=== PATIENT | male | born 1970 | race Caucasian/White ===

== ENCOUNTER 2018-09-28 14:15 | Emergency (ER) | payer OTHER ==
[2018-09-28 14:26] VITALS: BP 131/88; PULSE 100; TEMP 98; BMI 29.2
[2018-09-28] MEDS ORDERED: INDOMETHACIN 50 MG CAPSULE PO ONE (14:34)
[2018-09-28] MEDS ORDERED: COLCHICINE 0.6 MG TABLET (FP) PO ONE ×2 (14:34→15:55)
--- NOTE | 2018-09-28 14:37 | PDOC ---
History of Present Illness - General Chief Complaint: Pain Stated Complaint: PAIN Time Seen by Provider: 09/28/18 14:28 History Source: Patient - History of Present Illness Occurred: reports: yesterday Severity: Yes: moderate Lower Extremity Pain Location: right: foot, ankle Past History - Past Medical History Allergies/Adverse Reactions: Allergies Allergy/AdvReac Type Severity Reaction Status Date / Time No Known Allergies Allergy Verified 09/28/18 14:34 Home Medications: Ambulatory Orders Colchicine 0.6 mg PO BID #14 capsule 09/28/18 Indomethacin 50 mg PO TID #21 capsule 09/28/18 COPD: No Kidney Stones: Yes Other medical history: GOUT - Suicide/Smoking/Psychosocial Hx Smoking History: Never smoked Have you smoked in the past 12 months: Yes Number of Cigarettes Smoked Daily: 0 Hx Alcohol Use: No Drug/Substance Use Hx: No Substance Use Type: None Review of Systems - Review of Systems Constitutional: No: Chills, Fever Musculoskeletal: Yes: Joint Pain, Joint Swelling *Physical Exam - Vital Signs Last Vital Signs Temp Pulse Resp BP Pulse Ox 98.0 F 100 H 18 131/88 100 09/28/18 14:24 09/28/18 14:24 09/28/18 14:24 09/28/18 14:24 09/28/18 14:24 - Physical Exam General Appearance: Yes: Appropriately Dressed. No: Apparent Distress HEENT: positive: Normal Voice Neck: positive: Supple Respiratory/Chest: negative: Respiratory Distress Extremity: positive: Swelling (mild swelling to lateral mal of R ankle w/ diffuse ttp to ankle joint and proximal foot, no erythema or increased warmth) Integumentary: positive: Dry, Warm Neurologic: positive: Fully Oriented, Alert, Normal Mood/Affect Moderate Sedation - Procedure Monitoring Vital Signs: Procedure Monitoring Vital Signs Temperature 98.0 F 09/28/18 14:24 Pulse Rate 100 H 09/28/18 14:24 Respiratory Rate 18 09/28/18 14:24 Blood Pressure 131/88 09/28/18 14:24 O2 Sat by Pulse Oximetry (%) 100 09/28/18 14:24 ED Treatment Course - LABORATORY CBC & Chemistry Diagram: 09/28/18 15:05 09/28/18 15:05 - RADIOLOGY Radiology Studies Ordered: Category Date Time Status ANKLE & FOOT-RIGHT* [RAD] Stat Radiology 09/28/18 14:34 Ordered Medical Decision Making - Medical Decision Making 09/28/18 14:36 48 yo M, h/o renal stones, gout (usually to R great toe), not on any prophylactic meds, gets flares ~8 months, now here w/ pain and swelling to R foot/ankle x 2 days that feels like his gout except that his gout has never affected any joint except his R toe. No f/c. No recent trauma or other obvious inciting factors. No h/o septic joint See exam Possibly gout to R ankle No e/o infection No recent trauma -basic labs including uric acid lvl -XR to assess for effusion -pain control in ED 09/28/18 14:52 09/28/18 16:15 XR with no obvious s/o effusion. Mild leukocytosis of 12 w/ mildly elevated uric acid lvl of 7.9. On reassessment, patient reports significant improvement with pain meds. Will dc w/ pain control. Will hold off on abx as not convinced clinically of an infectious process. Will dc with prescriptions for pain control and encourage PMD follow-up. Reasons to return to ER d/w pt *DC/Admit/Observation/Transfer Diagnosis at time of Disposition: H/O: gout Foot pain Qualifiers: Laterality: right Qualified Code(s): M79.671 - Pain in right foot - Discharge Dispostion Disposition: HOME - Prescriptions Prescriptions: Colchicine 0.6 mg PO BID #14 capsule Indomethacin 50 mg PO TID #21 capsule - Referrals - Patient Instructions Printed Discharge Instructions: Gout Additional Instructions: You were treated for an acute gout flare. There was no evidence of an infection today. Your uric acid was mildly elevated to 7.9 Take medications as directed and if symptoms persist and/or you develop redness , fever or chills, return to the ER immediately, otherwise follow-up with your PMD in a week - Post Discharge Activity
[2018-09-28] MEDS ORDERED: COLCHICINE 0.6 MG TABLET (FP) ONE ×2 (14:41→16:00)
[2018-09-28 15:25] LABS: BASO % 0.4 % (0-2.0); EOS % 0.4 % (0-4.5); HEMATOCRIT 37.5 % (35.4-49); HEMOGLOBIN 12.3 GM/dL (11.7-16.9); LYMPH % 14.3 % (8-40); MCHC 32.7 g/dl (32.0-35.9); MEAN CELL VOLUME 60.9 fl (80-96); MEAN PLT VOLUME 9.2 fl (7.5-11.1); MONO % 10.6 % (3.8-10.2); NEUT % 74.3 % (42.8-82.8); PLATELET COUNT 160 K/MM3 (134-434); RBC 6.16 M/mm3 (4.00-5.60); RDW 17.1 % (11.9-15.9); WHITE BLOOD COUNT 12.5 K/mm3 (4.0-10.0)
[2018-09-28 15:32] LABS: MCH 19.9 pg (25.7-33.7)
[2018-09-28 15:59] LABS: ALBUMIN 4.1 g/dl (3.4-5.0); ALK PHOS 64 U/L (45-117); ANION GAP 5 MMOL/L (8-16); BILIRUBIN,TOTAL 0.7 mg/dL (0.2-1); BLOOD UREA NITROGEN 16 mg/dL (7-18); CALCIUM 9.1 mg/dL (8.5-10.1); CHLORIDE 104 mmol/L (98-107); CO2 29 mmol/L (21-32); CREATININE 1.1 mg/dL (0.55-1.3); GLUCOSE,RANDOM 101 mg/dL (74-106); POTASSIUM 4.3 mmol/L (3.5-5.1); SGOT/AST 15 U/L (15-37); SGPT/ALT 30 U/L (13-61); SODIUM 137 mmol/L (136-145); TOT PROT 7.4 g/dl (6.4-8.2); URIC ACID 7.9 mg/dL (2.6-7.2)
[2018-09-28 23:05] LABS: MACROCYTOSIS 1+
[2018-09-28 23:06] LABS: PLATELET ESTIMATE ADEQUATE
== END 2018-09-28 16:28 | disposition home or self-care (01) ==
LOC: JERFT 14:15
DX: M79.671 Pain in right foot (principal)
CPT/HCPCS: 36415; 73610-TC-RT-FY; 73630-TC-RT-FY; 80053; 84550; 85025; 99281-25

== ENCOUNTER 2019-06-13 11:16 | Emergency (ER) | payer OTHER ==
[2019-06-13 11:32] VITALS: BP 127/82; PULSE 80; TEMP 98; BMI 28.1
--- NOTE | 2019-06-13 12:14 | PDOC ---
History of Present Illness - General Chief Complaint: Back Pain Stated Complaint: LOWER BACK PAIN Time Seen by Provider: 06/13/19 11:58 History Source: Patient Exam Limitations: No Limitations Past History - Past Medical History Allergies/Adverse Reactions: Allergies Allergy/AdvReac Type Severity Reaction Status Date / Time No Known Allergies Allergy Verified 06/13/19 11:32 Home Medications: Ambulatory Orders Colchicine 0.6 mg PO BID #14 capsule 09/28/18 Indomethacin 50 mg PO TID #21 capsule 09/28/18 Methocarbamol [Robaxin -] 1,500 mg PO QID PRN #24 tablet 06/13/19 COPD: No Kidney Stones: Yes Other medical history: GOUT - Psycho Social/Smoking Cessation Hx Smoking History: Never smoked Have you smoked in the past 12 months: Yes Number of Cigarettes Smoked Daily: 0 Hx Alcohol Use: No Drug/Substance Use Hx: No Substance Use Type: None Trauma Specific PMHX - Complaint Specific PMHX Back Injury: No Neck Injury: Yes (known C5-C6 disc injury, diag. in [place] with MRI) *Physical Exam - Vital Signs Last Vital Signs Temp Pulse Resp BP Pulse Ox 98 F 80 18 127/82 98 06/13/19 11:29 06/13/19 11:29 06/13/19 11:29 06/13/19 11:29 06/13/19 11:29 - Physical Exam General Appearance: No: Apparent Distress Respiratory/Chest: positive: Lungs Clear, Normal Breath Sounds. negative: Respiratory Distress Cardiovascular: positive: Regular Rhythm, Regular Rate, S1, S2. negative: Murmur Gastrointestinal/Abdominal: positive: Normal Bowel Sounds, Soft. negative: Tender, Distended, Guarding, Rebound Musculoskeletal: positive: Muscle Spasm (along L lumbar paraspinal muscles). negative: CVA Tenderness, Vertebral Tenderness Neurologic: positive: Alert, Normal Mood/Affect, Motor Strength 5/5, Other ( normal gait) Medical Decision Making - Medical Decision Making 48 y/o M hx of kidney stones, gout presents with L lower back pain x 2 days, worse with movement of body. Denies trauma, heavy lifting, fever, sob, cp, abd pain, n/v, hematuria, dysuria. Back muscle spasm Plan: Motrin, Robaxin Patient insistent that this pain is from kidney stones Explained this is not from kidney stones Will get UA to check for blood 06/13/19 12:12 UA no blood stable for dc 06/13/19 12:55 Discharge - Discharge Information Problems reviewed: Yes Clinical Impression/Diagnosis: Back muscle spasm Condition: Stable Disposition: HOME - Admission No - Additional Discharge Information Prescriptions: Methocarbamol [Robaxin -] 1,500 mg PO QID PRN #24 tablet PRN Reason: Muscle Spasms Prescription Drug Monitoring Program (I-STOP) results: I-STOP not reviewed - Follow up/Referral Referrals: Long Samaniego [Primary Care Provider] - 2 Days - Patient Discharge Instructions Patient Printed Discharge Instructions: DI for Back Spasm Additional Instructions: Thank you for choosing [facility]. It was a pleasure taking care of you. You may take Motrin 600 mg every 6 hours by mouth as needed for mild to moderate pain. Take Motrin with food. Take Robaxin as needed for muscle spasms. This medication can also make you drowsy so please be cautious with driving or performing heavy physical work. Heating pad, warm compresses, epsom salt baths may also help Return to the Emergency Department if your symptoms worsen or persist, you have fever, shortness of breath, chest pain, severe abdominal pain, vomiting, weakness of extremities (arms and/or legs), unable to control bowel or bladder movements or other concerning symptoms. - Post Discharge Activity
[2019-06-13] MEDS ORDERED: IBUPROFEN 400 MG TABLET (FP) PO ONE (12:15)
[2019-06-13] MEDS ORDERED: METHOCARBAMOL 750 MG TABLET PO ONE (12:15)
[2019-06-13] MEDS ORDERED: IBUPROFEN 600 MG TABLET (FP) PO ONE (12:26)
[2019-06-13] MEDS ORDERED: METHOCARBAMOL 500 MG TABLET ONE (12:33)
[2019-06-13 12:41] LABS: URINE APPEARANCE CLEAR; URINE BILIRUBIN NEGATIVE (NEGATIVE); URINE COLOR YELLOW; URINE GLUCOSE (UA) NEGATIVE (NEGATIVE); URINE KETONE TRACE (NEGATIVE); URINE LEUK ESTERASE NEGATIVE (NEGATIVE); URINE NITRITE NEGATIVE (NEGATIVE); URINE PROTEIN NEGATIVE (NEGATIVE); URINE UROBILINOGEN 0.2 mg/dL (0.2-1.0)
== END 2019-06-13 13:02 | disposition home or self-care (01) ==
LOC: JERFT 11:16
DX: M62.830 Muscle spasm of back (principal); M54.6 Pain in thoracic spine; M10.9 Gout, unspecified; Z87.442 Personal history of urinary calculi
CPT/HCPCS: 81003; 99282-25

== ENCOUNTER 2019-07-04 09:30 | Day surgery (SDC) | payer OTHER ==
[2019-07-02 16:01] VITALS: BMI 29.6
[2019-07-04] MEDS ORDERED: PROPOFOL 20 ML ONE ×2 (11:16→12:46)
[2019-07-04] MEDS ORDERED: MIDAZOLAM HCL 2 MG/2 ML SINGLE DOSE VIAL ONE (11:16)
[2019-07-04] MEDS ORDERED: ONDANSETRON 4 MG/2 ML VIAL IVPUSH PRN ×2 (11:57→13:17)
[2019-07-04] MEDS ORDERED: oxyCODONE HCL 5 MG TABLET PO PRN ×2 (11:57)
[2019-07-04] MEDS ORDERED: LACTATED RINGERS SOLUTION 1,000 ML IV SCH ×2 (12:00→13:30)
[2019-07-04] MEDS ORDERED: ceFAZolin SODIUM 1 GM VIAL IVPB ONE (12:30)
[2019-07-04] MEDS ORDERED: GENTAMICIN SO4 80 MG/2 ML VIAL ONE (12:35)
[2019-07-04] MEDS ORDERED: GENTAMICIN SO4 80 MG/2 ML VIAL IVPB ONE (12:40)
[2019-07-04] MEDS ORDERED: IOHEXOL 300 MG/ML INFUS..BTL IV ONE (12:45)
[2019-07-04] MEDS ORDERED: FUROSEMIDE 40 MG/4 ML INJECTABLE VIAL ONE (12:47)
--- NOTE | 2019-07-04 13:12 | OP ---
Operative Note - Note: Operative Date: 07/04/19 Pre-Operative Diagnosis: LDU stone Operation: ureteroscopy/laser litho Post-Operative Diagnosis: Same as Pre-op Surgeon: Grady Atkins Anesthesia: General Specimens Removed: stones Drains & Tubes with Location: 7fr, 24cm stent
[2019-07-04] MEDS ORDERED: DEXTROSE 5%-0.45% SALINE 1,000 ML IV SCH (13:15)
[2019-07-04] MEDS ORDERED: oxyCODONE HCL 5 MG TABLET ONE (15:41)
[2019-07-04] MEDS ORDERED: oxyCODONE HCL 5 MG TABLET PO ONE (15:52)
[2019-07-04 16:00] VITALS: TEMP 97.8
[2019-07-04 16:14] VITALS: BP 146/91; PULSE 70
--- NOTE | 2019-07-04 23:17 | OP ---
DATE OF OPERATION: DATE OF DICTATION: 07/04/2019 PREOPERATIVE DIAGNOSIS: Left distal ureteral stone. POSTOPERATIVE DIAGNOSIS: Left distal ureteral stone. PROCEDURE: Cystoscopy, left ureteroscopy, laser lithotripsy, and stone basketing and stent placement. SURGEON: Tonia Dey M.D. INDICATION: Patient is a 48-year-old male with a 6-mm left distal ureteral stone who underwent lithotripsy. However, the stone has failed to pass, and patient has been persistently symptomatic. He is taken to OR today for ureteroscopy and laser lithotripsy. DESCRIPTION OF PROCEDURE: After informed consent was obtained, patient was taken to the OR and placed supine on the operating table. After cardiac monitoring was administered, and general anesthesia established, she was prepped and draped in the dorsal lithotomy position. The 22 sheath rigid cystoscope was inserted into the urethra without difficulty . The bladder was visualized. No tumors or stones noted in the bladder. Attention was turned to ureteral orifice. It was intubated with ureteral catheter, and contrast injected for retrograde pyelogram. There was hydroureteronephrosis down to the level of the distal ureter where stone was seen. A guidewire was advanced beyond the stones into left renal pelvis. Alongside the guidewire, a semirigid ureteroscope was advanced into the distal ureter where a 6-mm stone was seen. Using the 365 micron laser fiber, distal stone was pulverized into fine dust and 1-2 mm fragments. Several of these fragments removed with a grasper forceps and sent to pathology for analysis. Repeat ureteroscopy revealed no evidence of any residual stone burden in the ureter. Ureteroscope was then removed, and a 7-Arabic, 24-cm stent was then advanced in a monorail fashion. Fluoroscopy confirmed stent to be in good position. Patient then awoken from anesthesia and transferred to the recovery room in stable condition. There were no complications. Estimated blood loss was minimal. TONIA DEY M.D. [id number]
== END 2019-07-04 16:25 | disposition home or self-care (01) ==
LOC: JASU-SURG 09:30
PROVIDERS: ATTEND Urology
PROC: 0TF78ZZ Fragmentation in Left Ureter, Via Natural or Artificial Opening Endoscopic (ICD-10-PCS; principal; 2019-07-04 12:00)
PROC: 0T778DZ Dilation of Left Ureter with Intraluminal Device, Via Natural or Artificial Opening Endoscopic (ICD-10-PCS; 2019-07-04 12:00)
DX: N20.1 Calculus of ureter (principal)
CPT/HCPCS: 76000-TC-FY; 94760

== ENCOUNTER 2022-07-15 04:23 | Day surgery (SDC) | payer OTHER ==
[2022-07-13 17:37] VITALS: BMI 29.6
[2022-07-15] MEDS ORDERED: LIDOCAINE HCL/PF 1% SDV 5ML VIAL ONE (07:36)
[2022-07-15] MEDS ORDERED: BUPIVACAINE HCL/PF 0.5% (5MG/ML) 10 ML VIAL ONE (07:36)
[2022-07-15] MEDS ORDERED: LIDOCAINE HCL 1% PRESERVATIVE FREE - 30ML VIAL IJ ONE (12:08)
[2022-07-15] MEDS ORDERED: BUPIVACAINE HCL/PF 0.5% (5 MG/ML) 30 ML VIAL IJ ONE ×3 (12:08→12:30)
[2022-07-15] MEDS ORDERED: IOHEXOL 180 MG/1 ML ML IJ ONE ×3 (12:09→12:30)
[2022-07-15 13:24] VITALS: RESP 18; TEMP 97.5
[2022-07-15 14:26] VITALS: BP 130/86; PULSE 80
== END 2022-07-15 13:45 | disposition home or self-care (01) ==
LOC: JASU-SURG 04:23
PROVIDERS: ATTEND Pain Medicine Pain Medicine
PROC: 3E0T33Z Introduction of Anti-inflammatory into Peripheral Nerves and Plexi, Percutaneous Approach (ICD-10-PCS; 2022-07-15)
PROC: 3E0T3BZ Introduction of Anesthetic Agent into Peripheral Nerves and Plexi, Percutaneous Approach (ICD-10-PCS; principal; 2022-07-15 12:15)
DX: M47.812 Spondylosis without myelopathy or radiculopathy, cervical region (principal)
CPT/HCPCS: 76000-TC-FY

== ENCOUNTER 2022-08-26 04:31 | Day surgery (SDC) | payer OTHER ==
[2022-08-22 11:57] VITALS: BMI 29.6
[2022-08-26] MEDS ORDERED: BUPIVACAINE HCL/PF 0.5% (5MG/ML) 10 ML VIAL ONE (07:35)
[2022-08-26] MEDS ORDERED: LIDOCAINE HCL/PF 1% SDV 5ML VIAL ONE (07:35)
[2022-08-26] MEDS ORDERED: PROPOFOL 20 ML ONE ×2 (13:15→13:33)
[2022-08-26] MEDS ORDERED: LIDOCAINE HCL/PF 2% SDV 5ML VIAL ONE (13:15)
[2022-08-26] MEDS ORDERED: BUPIVACAINE HCL/PF 0.5% (5MG/ML) 10 ML VIAL IJ ONE (13:25)
[2022-08-26] MEDS ORDERED: IOHEXOL 180 MG/1 ML ML IJ ONE (13:26)
[2022-08-26 14:12] VITALS: RESP 18
[2022-08-26 14:45] VITALS: BP 148/92; PULSE 65; TEMP 97.6
== END 2022-08-26 14:50 | disposition home or self-care (01) ==
LOC: JASU-SURG 04:31
PROVIDERS: ATTEND Pain Medicine Pain Medicine
PROC: 3E0T3BZ Introduction of Anesthetic Agent into Peripheral Nerves and Plexi, Percutaneous Approach (ICD-10-PCS; principal; 2022-08-26 11:45)
DX: M47.812 Spondylosis without myelopathy or radiculopathy, cervical region (principal)
CPT/HCPCS: 76000-TC-FY